=== PATIENT | male | born 1950 | race Caucasian/White ===

== ENCOUNTER 2018-02-06 09:29 | Emergency (ER) | payer OTHER, SELFPAY ==
[2018-02-06] VITALS (14 sets, daily range): BP systolic 137–161; BP diastolic 74–99; PULSE 53–80; RESP 14–19; TEMP 36.4; O2SAT 97–99; BMI 29.6
--- NOTE | 2018-02-06 09:46 | DI.CT.S_ITS ---
PROCEDURE: CT ABDOMEN PELVIS W CON INDICATIONS: severe abdominal pain. NO ORAL CONTRAST, WAIT ON LABS TECHNIQUE: After the administration of oral and intravenous contrast, 5 mm thick sections acquired from the diaphragms to the symphysis. 5 mm thick coronal and sagittal reformats were performed. For radiation dose reduction, the following was used: automated exposure control, adjustment of mA and/or kV according to patient size. COMPARISON: None. FINDINGS: Image quality: Diagnostic. ABDOMEN: Lung bases: There is airspace disease without significant enhancement identified involving the posterior right lower lobe. Otherwise, the imaged lung bases are clear. The heart is normal in size. Solid organs: The liver, spleen, adrenals, and pancreas are within normal limits. There is an abnormal enhancement pattern involving the right kidney with geographic and wedge like areas of abnormal/absent enhancement, best appreciated involving the mid and upper portion of the right kidney. There appears to be thrombus within the mid aspect of the main right renal artery (image 53, series 4 and image 37, series 2). An accessory renal artery supplying the mid to inferior pole of the right kidney takes off just proximal to this area of probable thrombosis/embolus and is noted to be widely patent. The left kidney is unremarkable. There is no hydronephrosis. No renal or ureteral calculi are evident. Peritoneum and bowel: There is a small hiatal hernia. Otherwise, the stomach is unremarkable. Multiple borderline prominent fluid-filled small bowel loops within the upper abdomen are best appreciated within the right upper quadrant. The colon is relatively decompressed, but is unremarkable. Distal colonic diverticulosis is noted without surrounding inflammation. The appendix is not clearly evident. No free fluid, loculated fluid collection or free air is identified. Nodes and vessels: No retroperitoneal or mesenteric adenopathy. Aorta and inferior vena cava are normal in caliber. There is mild aortic atherosclerosis. No additional arterial emboli are appreciated on this exam. Bones: No acute fracture or suspicious osseous lesions present. There are at least moderate degenerative changes present involving the imaged lumbar spine. PELVIS: Genitourinary: Bladder wall thickness is normal. The portion of the urinary bladder extends into the right inguinal hernia. Miscellaneous: No moderate-sized fat-containing bilateral inguinal hernias are present. A small amount of the right anterior urinary bladder extends into the right inguinal hernia. No bowel extends into these hernias. There is no free fluid or loculated fluid collection within the pelvis. The prostate is somewhat enlarged and heterogeneous, containing coarse calcifications. No pelvic lymphadenopathy is evident. Bones: No suspicious bony lesions. No acute pelvic fractures are identified. There are moderate degenerative changes of the hips and sacroiliac joints. IMPRESSION: 1. 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 A conventional angiogram may be helpful for further characterization. 2. No hydronephrosis of the kidneys. 3. Consolidation at the right lung base suspicious for pneumonia versus aspiration. 4. Probable small bowel ileus within the upper abdomen. No complete bowel obstruction. 5. Bilateral inguinal hernias. A portion of the urinary bladder extends into the right inguinal hernia. 6. Enlarged heterogeneous prostate. 7. Degenerative changes of the lumbosacral spine and hips. Note: Findings were discussed with Dr. Stewart at 1117 ([facility]) on 02/06/18. Dictated by: Ilya Harvey M.D. on 02/06/2018 at 10:05 Approved by: Ilya Harvey M.D. on 02/06/2018 at 10:17
[2018-02-06] MEDS: SODIUM CHLORIDE 0.9% 1,000 ML 150 ML IV (10:05)
[2018-02-06 10:08] LABS: Add Manual Diff / Slide Review NO; Basophils Percent Auto 0.5 % (0-2); Eosinophils Percent Auto 0.1 % (2-4); Hematocrit 40.4 % (41-53); Hemoglobin 13.8 g/dL (13.5-17.5); Lymphocytes Percent Auto 6.2 % (25-40); Mean Corpuscular HGB Conc 34.3 % (30-36); Mean Corpuscular Hemoglobin 31.8 PG (26-34); Mean Corpuscular Volume 92.7 fL (80-100); Monocytes Percent Auto 1.3 % (3-14); Neutrophils Absolute Auto 10700 /uL (3000-5900); Neutrophils Percent Auto 91.9 % (50-75); Platelet Count 343 X10^3/uL (150-400); Red Blood Cell Count 4.36 X10^6/uL (4.5-5.9); Red Cell Distribution Width 13.4 % (11.6-14.8); White Blood Cell Count 11.6 X10^3/uL (4.5-11.0)
[2018-02-06 10:19] LABS: Alanine Aminotransferase 239 IU/L (21-72); Albumin 3.6 g/dL (3.5-5.0); Albumin Globulin Ratio 0.9 (1.0-2.8); Alkaline Phosphatase 143 U/L (38-126); Aspartate Aminotransferase 93 IU/L (17-59); Bilirubin Total 0.7 mg/dL (0.2-1.3); Calcium 8.7 mg/dL (8.4-10.2); Estimated Glomerular Filt Rate > 60.0 mL/min (>60); Globulin 3.8 g/dL (1.7-4.1); Glucose 156 mg/dL (80-110); HEMOLYSIS < 15 (0-50); Lipase 165 U/L (23-300); Potassium 4.9 mmol/L (3.4-5.1); Sodium 142 mmol/L (137-145); Total Protein 7.4 g/dL (6.3-8.2)
[2018-02-06 10:20] LABS: Lactate (Lactic Acid) 2.3 mmol/L (0.7-2.1)
[2018-02-06] MEDS: HYDROMORPHONE 0.5 MG INJ IV ×4 (11:09→17:32)
[2018-02-06 11:55] LABS: Amorphous Sediment Urine 1+; WBC Urine 1-5/HPF (0-5/HPF)
[2018-02-06 11:56] LABS: Culture Indicated Urine Cult Not Indicated; Mucus Urine 1+ (Negative); Other Crystals Urine AMMONIUM BIURATE
[2018-02-06] MEDS: ENOXAPARIN 100 MG/ML SYRINGE 90 MG SUBCUT (12:45)
[2018-02-06 13:56] LABS: Troponin I 0.026 ng/mL (0.01-0.034)
[2018-02-06 14:03] LABS: Reflexed Lactate in 2 Hours Y
[2018-02-06 15:03] LABS: Lactate 2HR (Lactic Acid Rflx) 1.3 mmol/L (0.7-2.1)
--- NOTE | 2018-02-06 16:17 | PC.NURSE ---
Pt shut of monitoring manager. The noise is driving me crazy- I want to sleep. Verbalized understanding of risk. Prefers no monitoring at this time. aware.
--- NOTE | 2018-02-06 17:01 | ED_ITS ---
HPI - Abdominal Pain General Chief Complaint: Abdominal Pain Stated Complaint: RLQ abd/flank pain Time Seen by Provider: 02/06/18 09:44 Source: patient and EMS Mode of arrival: EMS History of Present Illness HPI narrative: Patient presents to the emergency department with a chief complaint of gradually worsening right lower quadrant pain that started last evening. It initially covered his entire anterior lower abdomen but now is right lower quadrant with radiation to his back. He denies provocation, palliation. He has had subjective fever and chills. He denies any change in bowel habits including constipation or diarrhea. He denies any dysuria, frequency or urgency. He denies any history of the same. His pain was 9/10 when he presented to his primary care provider this morning and was almost gone by the time air left brought him after fentanyl and Toradol. He recently was diagnosed with right lower quadrant pneumonia and finished azithromycin yesterday, with a few doses of septum remaining. MD complaint: abdominal pain Onset (ago): hour(s) Pain Consistency: constant Location: RLQ Severity: moderate Quality: aching Radiation: R flank Migration to: no migration Relieving factors: nothing Exacerbating factors: nothing Related Data Home Medications Medication Instructions Recorded Confirmed ibuprofen [Advil] 200 mg PO PRN PRN #0 11/13/11 02/06/18 cefuroxime axetil 500 mg PO Q12H 02/06/18 02/06/18 Previous Rx's Medication Instructions Recorded lisinopril 10 mg PO BID #60 tab 03/11/17 Allergies Allergy/AdvReac Type Severity Reaction Status Date / Time No Known Drug Allergies Allergy Verified 02/06/18 09:45 Review of Systems Review of Systems All systems reviewed & are unremarkable except as noted in HPI and below Constitutional Denies chills, Denies fatigue, Denies fever(s), Denies lethargy and Denies weakness ENT Ears, Nose, Mouth, and Throat: Denies change in voice, Denies neck pain and Denies sore throat Cardiovascular Denies dyspnea and Denies dyspnea on exertion Respiratory Denies cough, Denies dyspnea, Denies dyspnea on exertion and Denies wheezing Gastrointestinal Gastrointestinal: Reports abdominal pain, Denies change in bowel habits, Denies diarrhea, Denies nausea and Denies vomiting Genitourinary Denies hematuria, Denies flank pain, Denies urinary incontinence and Denies urinary urgency Musculoskeletal Denies neck pain Integumentary/Breasts Denies pruritus, Denies erythema, Denies rash and Denies wounds Neurologic Denies weakness Endocrine Denies fatigue and Denies flushing Allergic/Immunologic Denies wheezing PFSH Medical History HTN (hypertension) (Acute) Exam Narrative Exam Narrative: Pleasant 68-year-old male in mild distress Initial Vital Signs Initial Vital Signs: Vital Signs Temperature 97.6 F 02/06/18 09:20 Pulse Rate 80 02/06/18 09:20 Respiratory Rate 14 02/06/18 09:20 Blood Pressure 137/96 H 02/06/18 09:20 Pulse Oximetry 99 02/06/18 09:20 Const General: cooperative, well developed and in distress Nutritional Appearance: well nourished Orientation: alert, awake, oriented x3 and not confused HENMT Head: normocephalic and atraumatic Ears: external ears normal and TM's normal bilaterally Nose: external nose normal and No nasal discharge Face and sinus: sinuses nontender, face symmetric, no sinus tenderness and No dry mucous membranes Mouth: oral mucosae normal and moist mucous membranes Teeth and gingiva: dentition normal Throat: tonsils normal and uvula midline Eyes General: appearance normal, both eyes and all related structures Eyelids: eyelids normal Conjunctivae: conjunctivae normal Sclera: sclerae normal Pupils: PERRL EOM: EOM intact bilaterally Chest Chest: normal inspection of the chest Resp Effort & Inspection: normal respiratory effort, able to speak in complete sentences, no respiratory distress and no use of accessory muscles Auscultation: clear to auscultation bilaterally, no rales, no rhonchi and no wheezes GI Inspection: non-distended and visible herniation Palpation: soft, no hepatosplenomegaly, No guarding, No pulsatile mass and tender Auscultation: normal bowel sounds Other: Right inguinal hernia examined while patient standing. Easily reducible with no tenderness overlying erythema or warmth Back/Spine/Pelvis Back: No CVA tenderness Cervical Spine: cervical ROM normal and No pain with cervical ROM Thoracic/Lumbar Spine: thoracic and lumbar spine normal to inspection Skin General: no rashes or lesions noted, No jaundice and No petechiae Neuro General: alert, awake and oriented x3 Extrem General: full ROM, no clubbing, cyanosis or edema, no pedal edema and no calf tenderness Psych Appearance: well kempt Mental Status: mental status grossly normal Attitude: cooperative Thought Content: normal and suicidality Judgment: judgment good Course Orders Ordered: ED Orders 02/06/18 09:46 CT abdomen pelvis w con Stat 02/06/18 09:50 Blood Culture Stat Complete Blood Count AUTO DIFF Stat Comprehensive Metabolic Panel Stat Lactate (Lactic Acid) Stat Lipase Stat 02/06/18 11:35 Urine Microscopic Stat 02/06/18 11:50 EKG-12 Lead Stat 02/06/18 13:34 Troponin I Stat Sodium Chloride (Normal Saline 0.9%) 1,000 mls @ 150 mls/hr IV CONT FRANKIE Last Admin: 02/06/18 10:05 Dose: 150 mls/hr Discontinued Medications Enoxaparin Sodium (Lovenox) 90 mg 1 mg/kg (90 mg) SUBCUT NOW ONE Stop: 02/06/18 12:30 Last Admin: 02/06/18 12:45 Dose: 90 mg Hydromorphone HCl (Dilaudid) 0.5 mg IV NOW ONE Stop: 02/06/18 10:56 Last Admin: 02/06/18 11:09 Dose: 0.5 mg Hydromorphone HCl (Dilaudid) 0.5 mg IV NOW ONE Stop: 02/06/18 12:49 Last Admin: 02/06/18 12:49 Dose: 0.5 mg Hydromorphone HCl (Dilaudid) 0.5 mg IV NOW ONE Stop: 02/06/18 15:03 Last Admin: 02/06/18 15:03 Dose: 0.5 mg Morphine Sulfate (Morphine) 4 mg IV NOW ONE Stop: 02/06/18 11:53 Last Admin: 02/06/18 11:59 Dose: Consultations Consultation #1: call to [facility], nursing 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 They have been paged Time: 12:20 Consultation #2: Vascular at [facility] states no intervention needed, however, initiation of anticoagulation and evaluation for embolic source is indicated Time: 12:35 Consultation #3: Call to Hospitalist at [facility] about admission and he stated patient needs a more thorough evaluation than that which can be performed at [facility], therefore would not accept patient Time: 13:36 Additional Consultation(s): Conversation with patient and family whom would prefer [facility] for transfer. Call to hospitalist, whom is happy to accept. Vital Signs - 8 hr 02/06/18 09:20 02/06/18 09:30 02/06/18 09:31 Temperature 97.6 F Pulse Rate 80 Respiratory Rate 14 Blood Pressure 137/96 H Blood Pressure [Left Arm] 137/96 H Blood Pressure [Right Arm] 146/88 H Pulse Oximetry 99 02/06/18 10:27 02/06/18 10:38 02/06/18 11:10 Temperature Pulse Rate 56 L 56 L 62 Respiratory Rate 14 14 16 Blood Pressure Blood Pressure [Left Arm] Blood Pressure [Right Arm] 161/99 H 151/86 H 155/93 H Pulse Oximetry 97 99 02/06/18 11:34 02/06/18 12:04 02/06/18 12:33 Temperature Pulse Rate 55 L 63 60 Respiratory Rate 14 19 19 Blood Pressure Blood Pressure [Left Arm] Blood Pressure [Right Arm] 145/87 H 158/93 H 154/84 H Pulse Oximetry 99 98 98 02/06/18 13:10 02/06/18 14:00 02/06/18 15:08 Temperature Pulse Rate 57 L 64 62 Respiratory Rate 19 16 14 Blood Pressure Blood Pressure [Left Arm] Blood Pressure [Right Arm] 138/74 H 145/80 H 158/88 H Pulse Oximetry 98 99 99 02/06/18 15:32 Temperature Pulse Rate 57 L Respiratory Rate 15 Blood Pressure Blood Pressure [Left Arm] Blood Pressure [Right Arm] 151/97 H Pulse Oximetry 98 MDM - Abdominal Pain Medical Records Attestation: I reviewed the patient's medical records. Lab Data Result diagrams: 02/06/18 09:50 02/06/18 09:50 Lab Results 02/06/18 02/06/18 02/06/18 Range/Units 09:50 09:50 09:50 WBC 11.6 H (4.5-11.0) X10^3/uL RBC 4.36 L (4.5-5.9) X10^6/uL Hgb 13.8 (13.5-17.5) g/dL Hct 40.4 L (41-53) % MCV 92.7 (80-100) fL MCH 31.8 (26-34) PG MCHC 34.3 (30-36) % RDW 13.4 (11.6-14.8) % Plt Count 343 (150-400) X10^3/uL Neut % (Auto) 91.9 H (50-75) % Lymph % (Auto) 6.2 L (25-40) % [place] % (Auto) 1.3 L (3-14) % Eos % (Auto) 0.1 L (2-4) % Baso % (Auto) 0.5 (0-2) % Neut # (Auto) 76109 H (7094-4838) /uL Sodium 142 (137-145) mmol/L Potassium 4.9 (3.4-5.1) mmol/L Chloride 99.0 (98-107) mmol/L Carbon Dioxide 26.0 (22-32) mmol/L BUN 27.0 H (9-20) mg/dL Creatinine 1.00 (0.66-1.25) mg/dL Estimated GFR > 60.0 (>60) mL/min BUN/Creatinine Ratio 27.0 H (6-22) Glucose 156 H (80-110) mg/dL Lactate 2.3 H (0.7-2.1) mmol/L Calcium 8.7 (8.4-10.2) mg/dL Total Bilirubin 0.7 (0.2-1.3) mg/dL AST 93 H (17-59) IU/L ALT 239 H (21-72) IU/L Alkaline Phosphatase 143 H (38-126) U/L Troponin I (0.01-0.034) ng/mL Total Protein 7.4 (6.3-8.2) g/dL Albumin 3.6 (3.5-5.0) g/dL Globulin 3.8 (1.7-4.1) g/dL Albumin/Globulin Ratio 0.9 L (1.0-2.8) Lipase 165 (23-300) U/L Urine WBC (0-5/HPF) Other Crystals Amorphous Sediment Urine Mucus (Negative) Ur Culture Indicated? Micro UA Comment 02/06/18 02/06/18 02/06/18 Range/Units 10:20 11:00 14:40 WBC (4.5-11.0) X10^3/uL RBC (4.5-5.9) X10^6/uL Hgb (13.5-17.5) g/dL Hct (41-53) % MCV (80-100) fL MCH (26-34) PG MCHC (30-36) % RDW (11.6-14.8) % Plt Count (150-400) X10^3/uL Neut % (Auto) (50-75) % Lymph % (Auto) (25-40) % [place] % (Auto) (3-14) % Eos % (Auto) (2-4) % Baso % (Auto) (0-2) % Neut # (Auto) (3855-6149) /uL Sodium (137-145) mmol/L Potassium (3.4-5.1) mmol/L Chloride (98-107) mmol/L Carbon Dioxide (22-32) mmol/L BUN (9-20) mg/dL Creatinine (0.66-1.25) mg/dL Estimated GFR (>60) mL/min BUN/Creatinine Ratio (6-22) Glucose (80-110) mg/dL Lactate 1.3 (0.7-2.1) mmol/L Calcium (8.4-10.2) mg/dL Total Bilirubin (0.2-1.3) mg/dL AST (17-59) IU/L ALT (21-72) IU/L Alkaline Phosphatase (38-126) U/L Troponin I 0.026 (0.01-0.034) ng/mL Total Protein (6.3-8.2) g/dL Albumin (3.5-5.0) g/dL Globulin (1.7-4.1) g/dL Albumin/Globulin Ratio (1.0-2.8) Lipase (23-300) U/L Urine WBC 1-5/hpf (0-5/HPF) Other Crystals Ammonium biurate Amorphous Sediment 1+ Urine Mucus 1+ H (Negative) Ur Culture Indicated? Cult not indicated Micro UA Comment Not Reportable Imaging Data CT scan - abdomen: Radiologist's impression: PROCEDURE: CT ABDOMEN PELVIS W CON INDICATIONS: severe abdominal pain. NO ORAL CONTRAST, WAIT ON LABS TECHNIQUE: After the administration of oral and intravenous contrast, 5 mm thick sections acquired from the diaphragms to the symphysis. 5 mm thick coronal and sagittal reformats were performed. For radiation dose reduction, the following was used: automated exposure control, adjustment of mA and/or kV according to patient size. COMPARISON: None. FINDINGS: Image quality: Diagnostic. ABDOMEN: Lung bases: There is airspace disease without significant enhancement identified involving the posterior right lower lobe. Otherwise, the imaged lung bases are clear. The heart is normal in size. Solid organs: The liver, spleen, adrenals, and pancreas are within normal limits. There is an abnormal enhancement pattern involving the right kidney with geographic and wedge like areas of abnormal/absent enhancement, best appreciated involving the mid and upper portion of the right kidney. There appears to be thrombus within the mid aspect of the main right renal artery (image 53, series 4 and image 37, series 2). An accessory renal artery supplying the mid to inferior pole of the right kidney takes off just proximal to this area of probable thrombosis/embolus and is noted to be widely patent. The left kidney is unremarkable. There is no hydronephrosis. No renal or ureteral calculi are evident. Peritoneum and bowel: There is a small hiatal hernia. Otherwise, the stomach is unremarkable. Multiple borderline prominent fluid-filled small bowel loops within the upper abdomen are best appreciated within the right upper quadrant. The colon is relatively decompressed, but is unremarkable. Distal colonic diverticulosis is noted without surrounding inflammation. The appendix is not clearly evident. No free fluid, loculated fluid collection or free air is identified. Nodes and vessels: No retroperitoneal or mesenteric adenopathy. Aorta and inferior vena cava are normal in caliber. There is mild aortic atherosclerosis. No additional arterial emboli are appreciated on this exam. Bones: No acute fracture or suspicious osseous lesions present. There are at least moderate degenerative changes present involving the imaged lumbar spine. PELVIS: Genitourinary: Bladder wall thickness is normal. The portion of the urinary bladder extends into the right inguinal hernia. Miscellaneous: No moderate-sized fat-containing bilateral inguinal hernias are present. A small amount of the right anterior urinary bladder extends into the right inguinal hernia. No bowel extends into these hernias. There is no free fluid or loculated fluid collection within the pelvis. The prostate is somewhat enlarged and heterogeneous, containing coarse calcifications. No pelvic lymphadenopathy is evident. Bones: No suspicious bony lesions. No acute pelvic fractures are identified. There are moderate degenerative changes of the hips and sacroiliac joints. IMPRESSION: 1. 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 A conventional angiogram may be helpful for further characterization. 2. No hydronephrosis of the kidneys. 3. Consolidation at the right lung base suspicious for pneumonia versus aspiration. 4. Probable small bowel ileus within the upper abdomen. No complete bowel obstruction. 5. Bilateral inguinal hernias. A portion of the urinary bladder extends into the right inguinal hernia. 6. Enlarged heterogeneous prostate. 7. Degenerative changes of the lumbosacral spine and hips. Note: Findings were discussed with Dr. Stewart at 1117 ([facility]) on 02/06/18. Dictated by: Ilya Harvey M.D. on 02/06/2018 at 10:05 Approved by: Ilya Harvey M.D. on 02/06/2018 at 10:17 Critical Care Time Critical Care Time: Yes Total Critical Care Time: 30 Attestation: Critical care time is separate from other billable procedures. This critical care time includes consultation with family and other consulting doctors, review of records, and interpretation of data from labs, EKGs, imaging, etc. Discharge Plan Departure Patient Disposition: [facility] Clinical Impression: Renal artery embolism, Infarction of kidney Prescriptions: No Action ibuprofen [Advil] 200 MG tablet 200 mg PO PRN PRN (Reason: Pain, Moderate) Qty: 0 RF: 0 lisinopril 10 MG tablet 10 mg PO BID Qty: 60 RF: 1 cefuroxime axetil 500 mg Tablet 500 mg PO Q12H RF: 0
--- NOTE | 2018-02-06 17:36 | PC.NURSE ---
Pt being transported to [facility] via ALS ambulance. Medicated w/ dilaudid prior to leaving ED. biologist will monitor.
== END 2018-02-06 17:40 | disposition short-term general hospital (02) ==
PROVIDERS: Emergency Provider Emergency Medicine
DX: N28.0 Ischemia and infarction of kidney (principal)
CPT/HCPCS: 36415; 74177; 80053; 81003; 81015; 83605; 83690; 84484; 85025; 87040; 93005; 96372; 96374; 96375; 96376; 99285; J1170; J1650; Q9967

== ENCOUNTER 2019-11-05 14:00 | Day surgery (SDC) | payer OTHER, MEDICARE, SELFPAY ==
[2019-11-05 14:26] VITALS: BP 124/59; PULSE 30; RESP 14; TEMP 36.1; O2SAT 99; BMI 27.5
--- NOTE | 2019-11-05 14:37 | P.HP_ITS ---
History of Present Illness History of Present Illness Date Patient Seen: 11/05/19 Time Patient Seen: 14:37 Chief complaint: [id number] SCREENING COLONOSCOPY Narrative: Patient presents for colorectal screening. They then previous colonoscopy about 8 years ago which was normal. Recently he had a positive fecal occult blood test and subsequently referred for colonoscopy. No personal or family history of colon cancer. On further history denies any recent gastrointestinal symptoms. No nausea, vomiting, abdominal pain, loss of appetite, unexplained weight loss, change in bowel habits, diarrhea, constipation, melena, hematochezia, or bright red blood per rectum. Patient History Medical History HTN (hypertension) (Acute) Meds Home Medications and Allergies Home Medications Medication Instructions Recorded Confirmed Type Multi Complete with Iron 1 tab PO DAILY 11/05/19 11/05/19 History ascorbic acid (vitamin C) [Vitamin 500 mg PO DAILY 11/05/19 11/05/19 History C] lisinopril 20 mg PO BID 11/05/19 11/05/19 History spironolactone 25 mg PO DAILY 11/05/19 11/05/19 History Allergies Allergy/AdvReac Type Severity Reaction Status Date / Time No Known Drug Allergies Allergy Verified 11/05/19 14:17 Review of Systems Review of Systems Narrative: A 10 point review of systems is negative except as noted in the HPI Exam Narrative Exam Narrative: General-no acute distress, well nourished HEENT-moist mucous membranes, no scleral icterus Neck-supple, no lymphadenopathy Chest- non labored respirations, clear to auscultation bilaterally Cardiac-regular rate no peripheral edema Abdomen-soft, nontender, non distended Extremities-warm, well perfused Neurological-alert and oriented, no focal deficits Assessment & Plan Assessment and plan (1) Screening for colon cancer: Current visit: Yes Status: Acute Assessment & Plan narrative: The patient requires colorectal screening and colonoscopy is recommended. Technical details were discussed. Risks, benefits, alternatives explained. Risks including but not limited to myocardial i nfarction, aspiration, bleeding, pain, missed lesion, incomplete examination, need for further radiographic studies, colonic perforation, and need for major abdominal surgery were discussed. All questions were answered to their satisfaction, and they are in agreement with this plan.
[2019-11-05] MEDS: SODIUM CHLORIDE 0.9% 1,000 ML 200 ML IV (14:46)
--- NOTE | 2019-11-05 14:47 | SUR.PREOP ---
While checking pt in for endo procedure, during obtaining vital signs, it was noted, pt heart rate 30bpm. Pt asymptomatic and reports my heart rate is always slow and is normal for him. 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 Pt observed to be in sinus bradycardia at this time. Dr. Saldivar and notified and brought to pt bedside. Dr. Saldivar spoke with pt. No new orders received from Dr. Saldivar at this time. Pt appears comfortable at this time and asymptomatic.
[2019-11-05] MEDS: fentaNYL 250 MCG/5 ML INJ IV (15:10)
[2019-11-05] MEDS: MIDAZOLAM 5 MG/ML VIAL 1 MG IV (15:10)
--- NOTE | 2019-11-05 15:31 | PM.OP.ENDO ---
Operative Date/Time/Diagnoses Date of procedure: 11/05/19 Time of procedure: 15:31 Pre-op diagnosis: Positive fecal occult test Post-op diagnosis: same Procedure & Clinicians Study performed: Diagnostic colonoscopy Same procedure as scheduled: Yes Indications: 69-year-old male last colonoscopy 8 years ago recently positive fecal occult blood test. Surgeon: Rodolfo Saldivar Procedure Notes SCOAP/Timeout: Performed Procedure in detail: Patient placed in left lateral decubitus position. Time out was performed. Procedural sedation was administered with Versed and Fentanyl. A rectal exam demonstrated no external hemorrhoids no internal masses. Colonoscopy scope was placed into the rectum and advanced through the colon to the cecum. The ileocecal valve was identified. The scope was then slowly withdrawn examining colon thoroughly in all directions. The colonoscopy was notable for the following 1. No masses or polyps 2. No diverticulitis 3. Quality of prep excellent 4. No source of bleeding identified Scope withdrawal time: 6 Sedation minutes: 18 Impression: Normal colonoscopy Post-procedure Recommendations: Colonscopy in 10 years Disposition: same day surgery
[2019-11-05 15:36] VITALS: BP 104/53; PULSE 73; RESP 17; TEMP 35.9; O2SAT 99
[2019-11-05 15:41] VITALS: BP 101/51; PULSE 66; RESP 14; O2SAT 99
[2019-11-05 15:45] VITALS: BP 112/72; PULSE 56; RESP 11; TEMP 36.4; O2SAT 100
[2019-11-05 15:53] VITALS: BP 116/67; PULSE 45; RESP 13; TEMP 36.2; O2SAT 100
[2019-11-05 15:59] VITALS: BP 128/66; PULSE 44; RESP 17; O2SAT 98
== END 2019-11-05 16:30 | disposition home or self-care (01) ==
PROVIDERS: PCP Family Medicine; Referring Provider Family Medicine; Visit Provider Surgery
PROC: 0DJD8ZZ Inspection of Lower Intestinal Tract, Via Natural or Artificial Opening Endoscopic (ICD-10-PCS; CPT 45378; principal; 2019-11-05 15:15)
DX: R19.5 Other fecal abnormalities (principal)
CPT/HCPCS: 45378; 99152; J2250; J3010

== ENCOUNTER → 2022-11-10 10:12 | Outpatient (CLI) | payer OTHER, MEDICARE, SELFPAY ==
--- NOTE | 2022-11-13 14:20 | PM.PFT.1 ---
Pulmonary Function Test Referral & Results Date Patient Seen: 11/10/22 Requesting provider: Fanta Galvez Results: The spirometry demonstrates an FVC of 2.91 L which is 73% of predicted. The FEV1 was measured at 2.37 L which is 83% of predicted. The FEV1/FVC ratio was 82 which is 111% of predicted. Following the administration of bronchodilator there was no change. Lung volumes show an SVC of 2.88 L which is 60% of predicted. The diffusing capacity was measured at 25.63 which is 86% of predicted. Interpretation: This study demonstrates possibly very mild obstructive lung disease based on reduction FEV1 although FEV1/FVC ratio is preserved There is a more moderate reduction in lung volumes suggesting the presence of moderate restrictive lung disease which probably explains the abnormality in the FEV1 above Clinical correlation suggested
== END ==
PROVIDERS: PCP Family Medicine; Referring Provider Nurse Practitioner; Visit Provider Nurse Practitioner
DX: Z79.899 Other long term (current) drug therapy (principal); I48.19 Other persistent atrial fibrillation; Z51.81 Encounter for therapeutic drug level monitoring; Z87.891 Personal history of nicotine dependence
CPT/HCPCS: 94060; 94726; 94729